=== PATIENT | male | born 1990 | race Caucasian/White ===

== ENCOUNTER 2019-03-25 09:29 | Emergency (ER) | payer OTHER ==
[~2019-03-25] VITALS: Ht 180.3 cm; Wt 90.7 kg
[~2019-03-25 09:29] MED LIST: ALPRAZOLAM 0.0.25 M1; CITRATE OF MAG296 ML PO; COLACE 100 MG100 MG PO; KLONOPIN1 MG PER TUBE; MOBIC7.5 M1 PO; NORCO 5-325 TA1 EACH PO; OXYCONTIN10 M1 PO; PREDNISONE 20 M20 M1 PO; PROZAC20 MG PO; SEROQUEL 100 M100 M1 PO; SEROQUEL 50 MG50 MG PO; SUBOXONE 8 MG-1 EAC1; SUBOXONE 8 MG-1 EAC3 SL; TRAZODONE 150150 M1 PO; VALIUM5 MG PO; VICOPROFEN 2001 EACH PO; XANAX1 MG PO; ZOLOFT50 MG PO; ZPAK PO
[2019-03-25 09:54] LABS: URINE BILIRUBIN NEGATIVE (Negative); URINE BLOOD NEGATIVE (Negative); URINE CLARITY CLEAR; URINE COLOR YELLOW; URINE GLUCOSE-RANDOM NEGATIVE (Negative); URINE KETONES NEGATIVE (Negative); URINE LEUKOCYTES-REFLEX NEGATIVE (Negative); URINE NITRITE-REFLEX NEGATIVE (Negative); URINE PROTEIN NEGATIVE (Negative); URINE UROBILINOGEN 0.2 E.U./dl (0.2-1.0)
[2019-03-25 10:00] LABS: ABSOLUTE EOSINOPHILS 0.1 thou/uL (0.0-0.7); ABSOLUTE LYMPHOCYTES 2.3 thou/uL (0.8-5.3); ABSOLUTE MONOCYTES 1.1 thou/uL (0.0-1.2); BASOPHILS 0.6 %; EOSINOPHILS 1.3 %; HEMATOCRIT 36.7 % (42.0-52.0); HEMOGLOBIN 12.3 gm/dL (14.0-18.0); MCH 29.8 pg (26.0-34.0); MCHC 33.5 g/dL (28.0-37.0); MCV 89.1 fL (80.0-100.0); MONOCYTES 14.4 %; MPV 7.6 fl. (7.2-11.1); NUCLEATED RBCS 0 /100WBC; PLATELET COUNT* 323 thou/uL (150-400); POLYS 52.7 %; RBC 4.12 mil/uL (4.50-6.00); RDW-CV 14.6 % (10.5-14.5); WBC 7.6 thou/uL (4.0-11.0)
[2019-03-25 10:01] LABS: AMP/METHAMP POSITIVE (Negative); BARBITURATES Negative (Negative); BENZODIAZEPINES POSITIVE (Negative); COCAINE Negative (Negative); METHADONE Negative (Negative); OPIATES Negative (Negative); PCP Negative (Negative); THC POSITIVE (Negative)
[2019-03-25 10:13] LABS: CALCIUM 8.4 mg/dL (8.5-10.1)
[2019-03-25 10:14] LABS: POTASSIUM 2.8 mmol/L (3.5-5.1)
[2019-03-25 10:18] LABS: ALBUMIN 3.9 g/dL (3.4-5.0); TOTAL BILIRUBIN 0.6 mg/dL (<0.1-1.0); TOTAL PROTEIN 7.6 g/dL (6.4-8.2)
[2019-03-25 10:35] LABS: SALICYLATE 2.9 mg/dL (2.8-20.0)
[2019-03-25 10:36] LABS: ACETAMINOPHEN < 2 ug/mL (10-30); ALCOHOL < 10 mg/dL (<10)
[2019-03-25] MEDS ORDERED: ZANTAC 150MG T150 MG PO (10:46)
[2019-03-25] MEDS ORDERED: CLONAZEPAM 0.50.5 M1 PO (10:47)
[2019-03-25] MEDS ORDERED: ZOLOFT100 MG PO (10:47)
[2019-03-25] MEDS ORDERED: HYDROXYZINE PA100 MG PO (10:47)
[2019-03-25] MEDS ORDERED: SEROQUEL XR 30300 M1 PO (10:48)
[2019-03-25 14:43] VITALS: BP 143/86
== END 2019-03-25 14:43 | disposition home or self-care (01) ==
LOC: M.ERS 09:29
PROVIDERS: Family Medicine
DX: F32.9 Major depressive disorder, single episode, unspecified (principal); M06.9 Rheumatoid arthritis, unspecified; F31.9 Bipolar disorder, unspecified; F90.9 Attention-deficit hyperactivity disorder, unspecified type; J45.909 Unspecified asthma, uncomplicated; F17.210 Nicotine dependence, cigarettes, uncomplicated; Z88.1 Allergy status to other antibiotic agents; Z88.2 Allergy status to sulfonamides; Z88.0 Allergy status to penicillin; Z79.899 Other long term (current) drug therapy; Z86.19 Personal history of other infectious and parasitic diseases; Z86.14 Personal history of Methicillin resistant Staphylococcus aureus infection